=== PATIENT | female | born 1965 | race African-American/Black ===

== ENCOUNTER 2016-03-10 06:53 | Emergency (ER) | payer MEDICAID, MEDICARE ==
[~2016-03-10] VITALS: Ht 170.2 cm; Wt 79.4 kg
[~2016-03-10 06:53] MED LIST: ALBUTEROL SULF8.5 GM INH; AZITHROMYCIN250 MG ORAL; CHERATUSSIN AC118 ML PO; IBUPROFEN600 MG ORAL; NKM; PRILOSEC20 MG ORAL; ZOFRAN ODT4 MG ORAL
[2016-03-10 07:27] VITALS: BP 135/88
[2016-03-10] MEDS ORDERED: METROGEL-VAGINA70 G1 VAGIN (07:31)
[2016-03-10 07:37] VITALS: BP 135/88
--- NOTE | 2016-03-10 07:44 | Emergency Room Report ---
History of Present Illness General Chief Complaint: Female Urogenital Problems Source: Patient Present Illness HPI Patient is a 51-year-old female who presented after increased vaginal malodor. The patient had gradual so symptoms which are worsened by intercourse. The patient denies any vaginal discharge. She reported having no fever. She denied abdominal pain. She reports having a primary care physician. She denied any abdominal pain. She states that she's not . Allergies: Coded Allergies: MORPHINE (Verified Allergy, Unknown, 02/27/15) PENICILLINS (Verified Allergy, Unknown, 02/27/15) SHELLFISH DERIVED (Verified Allergy, Unknown, 02/27/15) Uncoded Allergies: CONTRAST (Allergy, Unknown, 03/10/16) Patient History Past Medical History: see triage record Last Menstrual Period: 2 weeks ago Now: No Reviewed Nursing Documentation: PMH: Agreed, PSxH: Agreed Nursing Documentation-PMH Past Medical History: No Stated History Review of Systems All Other Systems: negative except mentioned in HPI Physical Exam Vital Signs Date Time Temp Pulse Resp B/P Pulse Ox O2 Delivery O2 Flow Rate FiO2 03/10/16 07:06 98.2 90 16 135/88 98 Room Air Sp02 EP Interpretation: reviewed, normal General Appearance: normal inspection, well appearing, no apparent distress, alert, GCS 15 Head: atraumatic ENT: normal ENT inspection, hearing grossly normal, normal voice Neck: normal inspection, full range of motion, supple, no bony tend Respiratory: normal inspection, lungs clear, normal breath sounds, no respiratory distress, no retraction, no wheezing Cardiovascular #1: regular rate, rhythm, no edema Gastrointestinal: normal inspection, normal bowel sounds, non tender, soft, no guarding, no hernia Genitourinary: no CVA tenderness Musculoskeletal: normal inspection, back normal, normal range of motion Neurologic: normal inspection, alert, oriented x3, responsive, supervisor buffing and pasting III-XII nml as tested, speech normal Psychiatric: normal inspection, judgement/insight normal, mood/affect normal Skin: normal inspection, normal color, no rash Medical Decision Making Diagnostic Impression: Primary Impression: Bacterial vaginosis ER Course Patient presented for vaginal odor. The differential diagnosis included wasn't limited to bacterial vaginosis, Trichomonas, foreign body among others. Patient 's benign exam and does not appear to require any further imaging or laboratory testing at this time. The patient presented increased been diagnosed with bacterial vaginosis and states that this is a similar episode. Patient given prescription for MetroGel. The patient was advised that she would need further testing with her [employer] . Pelvic was deferred per patient. The patient is advised to follow up with primary care doctor in 1-2 days. Patient is advised to return if any worsening condition or if any changes in status that are concerning. Last Vital Signs Date Time Temp Pulse Resp B/P Pulse Ox O2 Delivery O2 Flow Rate FiO2 03/10/16 07:37 98.2 85 16 135/88 98 Room Air Status: improved Disposition: HOME, SELF-CARE Condition: Stable Scripts Metronidazole* (METROGEL-VAGINAL*) 70 Gm Gel.w.appl 1 APPL VAGIN EVERY 12 HOURS, #70 GM Prov: Jose Thornton 03/10/16 Referrals: [facility],REFERRING (PCP) Patient Instructions: Bacterial Vaginosis Jose Thornton Mar 10, 2016 07:44
== END 2016-03-10 07:43 | disposition home or self-care (01) ==
LOC: EMR 07:31
DX: N76.0 Acute vaginitis (principal); Z88.6 Allergy status to analgesic agent; Z91.041 Radiographic dye allergy status; Z91.013 Allergy to seafood
CPT/HCPCS: 99283

== ENCOUNTER 2016-03-30 21:24 | Emergency (ER) | payer MEDICAID ==
[~2016-03-30] VITALS: Ht 170.2 cm; Wt 78.9 kg
[~2016-03-30 21:24] MED LIST changes: +METROGEL-VAGINA70 G1 VAGIN
[2016-03-30 21:40] VITALS: BP 128/78
[2016-03-30 21:55] LABS: APPEARANCE,URINE CLEAR; KETONES,URINE NEGATIVE (NEGATIVE); LEUKOCYTE ESTERASE ,URINE NEGATIVE (NEGATIVE); NITRITE,URINE NEGATIVE (NEGATIVE); PH,URINE 6 (4.5-8.0); PROTEIN,URINE NEGATIVE (NEGATIVE); UROBILINOGEN,URINE NORMAL MG/DL (0.0-1.0)
[2016-03-30 22:16] LABS: BACTERIA,URINE OCCASIONAL /HPF; RBC,URINE 0-2 /HPF (0 - 2); SQUAMOUS EPITHELIAL CELL,UR FEW /LPF (NONE/OCC); WBC,URINE 0-2 /HPF (0 - 2)
[2016-03-30 22:30] VITALS: BP 120/67
[2016-03-30] MEDS ORDERED: NITROFURANTOIN100 M2 ORAL (22:49)
[2016-03-30] MEDS ORDERED: FLUCONAZOLE150 MG ORAL (22:49)
[2016-03-30] MEDS ORDERED: PHENAZOPYRIDIN100 MG ORAL (22:49)
[2016-03-30 23:00] VITALS: BP 128/78
--- NOTE | 2016-03-31 00:04 | Emergency Room Report ---
History of Present Illness General Chief Complaint: Female Urogenital Problems Source: Patient Present Illness HPI 51-year-old female presents to ED for evaluation. Patient states she was here earlier this month for malodorous vaginal discharge. Patient diagnosed with bacterial vaginosis and prescribed MetroGel. Patient states the symptoms were resolving and she stated that she got a curdish white discharge shortly after. States that she has been using dviv-mbp-rxyrivt medications without relief. States that she is noting dysuria the last few days. Superpubic pain. 5/10, sharp, nonradiating. Worse with urination. No aggravating relieving factors. Denies any other associated symptoms. Allergies: Coded Allergies: MORPHINE (Verified Allergy, Unknown, 02/27/15) PENICILLINS (Verified Allergy, Unknown, 02/27/15) SHELLFISH DERIVED (Verified Allergy, Unknown, 02/27/15) Uncoded Allergies: CONTRAST (Allergy, Unknown, 03/10/16) Patient History Past Medical History: none Past Surgical History: none Pertinent Family History: none Social History: Denies: alcohol use, drug use, smoking Last Menstrual Period: 2 weeks ago Now: No Immunizations: UTD Reviewed Nursing Documentation: PMH: Agreed, PSxH: Agreed Review of Systems All Other Systems: negative except mentioned in HPI Physical Exam Vital Signs Date Time Temp Pulse Resp B/P Pulse Ox O2 Delivery O2 Flow Rate FiO2 03/30/16 21:29 98.4 67 18 135/87 99 Room Air Sp02 EP Interpretation: reviewed, normal General Appearance: no apparent distress, alert, GCS 15, non-toxic Head: normocephalic, atraumatic Eyes: bilateral eye PERRL, bilateral eye normal inspection ENT: hearing grossly normal, normal pharynx, no angioedema, normal voice Neck: full range of motion, supple/symm/no masses Respiratory: chest non-tender, lungs clear, normal breath sounds, speaking full sentences Cardiovascular #1: regular rate, rhythm, no edema Cardiovascular #2: 2+ carotid (R), 2+ carotid (L), 2+ radial (R), 2+ radial (L) , 2+ dorsalis pedis (R), 2+ dorsalis pedis (L) Gastrointestinal: normal bowel sounds, non tender, soft, non-distended, no guarding, no rebound Rectal: deferred Genitourinary: normal inspection, no CVA tenderness Musculoskeletal: back normal, gait/station normal, normal range of motion, non- tender Neurologic: alert, oriented x3, responsive, motor strength/tone normal, sensory intact, speech normal Psychiatric: judgement/insight normal, memory normal, mood/affect normal, no suicidal/homicidal ideation Reflexes: 3+ bicep (R), 3+ bicep (L), 3+ tricep (R), 3+ tricep (L), 3+ knee (R) , 3+ knee (L) Skin: normal color, no rash, warm/dry, well hydrated Lymphatic: no adenopathy Medical Decision Making Diagnostic Impression: Primary Impression: Urinary tract infection Qualified Codes: N39.0 - Urinary tract infection, site not specified Additional Impression: Vaginal candidiasis ER Course Hospital Course 51-year-old female presents to ED complaining of dysuria with white curdish discharge Differential diagnoses include: UTI, cystitis, candidiasis, BV Clinical course Patient placed on stretcher. After initial history and physical I ordered UA, urine . UA + with some bacteria. Clinical he consistent with UTI. We will treat with antibiotics. will also prescribe Diflucan Diagnosis - UTI, vaginal candidiasis Stable and discharged home with prescriptions for Rx macrobid, pyridium, diflucan. Instructed to followup with PMD. Return to ED if symptoms recur or worsen Labs Test 03/30/16 21:40 Urine Color Pale yellow Urine Appearance Clear Urine pH 6 (4.5-8.0) Urine Specific [place] 1.010 (1.005-1.035) Urine Protein Negative (NEGATIVE) Urine Glucose (UA) Negative (NEGATIVE) Urine Ketones Negative (NEGATIVE) Urine Occult Blood 1+ (NEGATIVE) Urine Nitrite Negative (NEGATIVE) Urine Bilirubin Negative (NEGATIVE) Urine Urobilinogen Normal MG/DL (0.0-1.0) Urine Leukocyte Esterase Negative (NEGATIVE) Urine RBC 0-2 /HPF (0 - 2) Urine WBC 0-2 /HPF (0 - 2) Urine Squamous Epithelial Cells Few /LPF (NONE/OCC) Urine Bacteria Occasional /HPF (NONE) Urine HCG, Qualitative Negative Last Vital Signs Date Time Temp Pulse Resp B/P Pulse Ox O2 Delivery O2 Flow Rate FiO2 03/30/16 23:00 98.4 70 16 128/78 99 Room Air Status: improved Disposition: HOME, SELF-CARE Condition: Stable Scripts Fluconazole (FLUCONAZOLE) 150 Mg Tablet 150 MG ORAL ONCE A WEEK, #2 TAB Prov: WALTER BADILLO M.D. 03/30/16 Phenazopyridine Hcl* (PYRIDIUM*) 100 Mg Tablet 100 MG ORAL THREE TIMES A DAY, #9 TAB Prov: WALTER BADILLO M.D. 03/30/16 Nitrofurantoin Monohyd/M-Cryst* (MACROBID 100 MG*) 100 Mg Capsule 100 MG ORAL EVERY 12 HOURS for 7 Days, CAP Prov: WALTER BADILLO M.D. 03/30/16 Patient Instructions: Urinary Tract Infection, Vaginal Yeast Infection, Adult WALTER BADILLO M.D. Mar 31, 2016 00:04
== END 2016-03-30 23:00 | disposition home or self-care (01) ==
LOC: EMR 21:49
DX: N39.0 Urinary tract infection, site not specified (principal); B37.3 Candidiasis of vulva and vagina; Z88.6 Allergy status to analgesic agent; Z88.0 Allergy status to penicillin; Z91.013 Allergy to seafood; Z91.041 Radiographic dye allergy status
CPT/HCPCS: 81003; 81025; 99284

== ENCOUNTER 2016-09-30 20:47 | Emergency (ER) | payer MEDICAID ==
[~2016-09-30] VITALS: Ht 170.2 cm; Wt 74.8 kg
[~2016-09-30 20:47] MED LIST changes: +FLUCONAZOLE150 MG ORAL; +NITROFURANTOIN100 M2 ORAL; +PHENAZOPYRIDIN100 MG ORAL
[2016-09-30 21:00] VITALS: BP 128/70
--- NOTE | 2016-09-30 21:07 | Emergency Room Report ---
History of Present Illness General Chief Complaint: Chest Pain Source: Patient Present Illness HPI This is a 51-year-old female with no past medical history. She presents chief complaint of chest pressure has been ongoing for last few hours. Also complaining of pain to needle sensation in her body. [place] numb. She is under a lot of stress in her home with family issue. Denies suicidal thought homicidal thought. No nausea no vomiting. [place] short of breath. No swelling of her legs but no family history of DVT or PE. Not On control pill. Allergies: Coded Allergies: No Known Allergies (Unverified , 09/30/16) Patient History Past Medical History: see triage record, old chart reviewed Past Surgical History: none Pertinent Family History: none Social History: Denies: smoking Last Menstrual Period: september 21, 2016 Now: No : 10 Para: 6 Immunizations: other Reviewed Nursing Documentation: PMH: Agreed, PSxH: Agreed Nursing Documentation-PMH Past Medical History: No History, Except For Review of Systems Eye: Denies: blurred vision, eye pain ENT: Denies: ear pain, nose congestion, throat swelling Respiratory: Denies: cough, shortness of breath Cardiovascular: Reports: chest pain, Denies: palpitations Gastrointestinal: Denies: abdominal pain, diarrhea, nausea, vomiting Musculoskeletal: Denies: back pain, joint pain Skin: Denies: rash Neurological: Denies: headache, numbness Endocrine: Denies: increased thirst, increased urine Hematologic/Lymphatic: Denies: easy bruising All Other Systems: negative except mentioned in HPI Physical Exam Vital Signs Date Time Temp Pulse Resp B/P Pulse Ox O2 Delivery O2 Flow Rate FiO2 09/30/16 20:52 98.2 66 20 128/70 100 Room Air vitals normal Sp02 EP Interpretation: reviewed, normal General Appearance: well appearing, no apparent distress, alert Head: normocephalic, atraumatic Eyes: bilateral eye EOMI, bilateral eye PERRL ENT: hearing grossly normal, normal pharynx Neck: full range of motion, supple, no meningismus Respiratory: chest non-tender, lungs clear, normal breath sounds Cardiovascular #1: regular rate, rhythm, no murmur Gastrointestinal: normal bowel sounds, non tender, no mass, no organomegaly, no bruit, non-distended Musculoskeletal: back normal, gait/station normal, normal range of motion Psychiatric: mood/affect normal Skin: warm/dry Medical Decision Making Diagnostic Impression: Primary Impression: Chest pain Qualified Codes: R07.9 - Chest pain, unspecified Additional Impression: Stress reaction ER Course patient with atypical chest pain. Most likely anxiety/stress related. She's felt better after Ativan. We'll discharge home. No evidence of ACS, PE, dissection to name a few. EKG Diagnostic Results EKG Time: 21:06 Rate: normal Rhythm: NSR ST Segments: no acute changes ASA given to the pt in ED: Yes Rhythm Strip Diag. Results Rhythm Strip Time: 21:06 Rate: 70 Rhythm: NSR, no PVC's Chest X-Ray Diagnostic Results Chest X-Ray Diagnostic Results : Chest X-Ray Ordered: Yes # of Views/Limited/Complete: 1 View Indication: Chest Pain EP Interpretation: Yes Interpretation: no consolidation, no effusion, no pneumothorax, no acute cardiopulmonary disease Impression: No acute disease Interpreting ER Provider: Electronically signed by Rahat Nieto MD Last Vital Signs Date Time Temp Pulse Resp B/P Pulse Ox O2 Delivery O2 Flow Rate FiO2 09/30/16 20:52 98.2 66 20 128/70 100 Room Air Status: improved Disposition: HOME, SELF-CARE Condition: Stable Scripts Lorazepam* (ATIVAN*) 1 Mg Tablet 1 MG ORAL THREE TIMES A DAY, #21 TAB Prov: RAHAT NIETO M.D. 09/30/16 Patient Instructions: Nonspecific Chest Pain Additional Instructions: Followup with your DrYahir in 2-3 days. Return if symptom worsen. RAHAT NIETO M.D. Sep 30, 2016 21:07
[2016-09-30 21:13] LABS: APPEARANCE,URINE CLEAR; KETONES,URINE NEGATIVE (NEGATIVE); LEUKOCYTE ESTERASE ,URINE NEGATIVE (NEGATIVE); NITRITE,URINE NEGATIVE (NEGATIVE); PH,URINE 7 (4.5-8.0); PROTEIN,URINE NEGATIVE (NEGATIVE); UROBILINOGEN,URINE NORMAL MG/DL (0.0-1.0)
[2016-09-30] MEDS ORDERED: LORazepam Inj 2mg/ml 1ml IV ONE (21:15)
[2016-09-30] MEDS ORDERED: Aspirin Baby 81mg ORAL ONE (21:15)
[2016-09-30 21:32] LABS: BASOPHILS % (AUTO) 1.4 % (0.0-2.0); EOSINOPHILS % (AUTO) 2.4 % (0.0-3.0); LYMPHOCYTES % (AUTO) 45.7 % (20.0-45.0); MEAN CORPUSCULAR HEMOGLOBIN 28.7 PG (27.0-31.0); MEAN CORPUSCULAR HGB CONC 33.1 G/DL (32.0-36.0); MEAN CORPUSCULAR VOLUME 87 FL (80-99); MEAN PLATELET VOLUME 6.9 FL (6.5-10.1); MONOCYTES % (AUTO) 9.9 % (1.0-10.0); NEUTROPHILS % (AUTO) 40.5 % (45.0-75.0); PLATELET COUNT 272 K/UL (150-450); RED BLOOD COUNT 4.35 M/UL (4.20-5.40); RED CELL DISTRIBUTION WIDTH 11.4 % (11.6-14.8); WHITE BLOOD COUNT 4.6 K/UL (4.8-10.8)
[2016-09-30 21:47] LABS: TROPONIN I < 0.30 ng/mL (<=0.30)
[2016-09-30 21:48] LABS: ALANINE AMINOTRANSFERASE 9 U/L (3-33); ALBUMIN/GLOBULIN RATIO 1.6 (1.0-2.7); ANION GAP 13 (5-15); ASPARTATE AMINO TRANSFERASE 16 U/L (5-40); CARBON DIOXIDE 25 mEQ/L (20-30); CHLORIDE 100 mEQ/L (98-107); CREATININE 1.1 mg/dL (0.5-0.9); GLOMERULAR FILTRATION RATE > 60 mL/min (>60); HEMOLYSIS 5; POTASSIUM 3.7 mEQ/L (3.4-4.9); SODIUM 138 mEQ/L (135-145); TOTAL PROTEIN 7.5 g/dL (6.6-8.7)
[2016-09-30 21:58] LABS: CKMB 3.4 ng/mL (< 3.8)
[2016-09-30] MEDS ORDERED: Ketorolac 30mg Inj IV ONE (22:00)
[2016-09-30] MEDS ORDERED: ATIVAN1 MG ORAL (22:10)
[2016-09-30 22:18] VITALS: BP 119/74
--- NOTE | 2016-10-01 10:42 | Diagnostic Imaging Report ---
Indication: Chest pain Technique: One view of the chest Comparison: none Findings: Lungs and pleural spaces are clear. Heart size is normal Impression: No acute process
--- NOTE | 2016-10-02 13:19 | Cardiology Report ---
APPROVED REPORT EKG Measurement Heart [id number] Sinus bradycardia with 1st degree AV block Possible Anterior infarct, age undetermined Abnormal ECG
== END 2016-09-30 22:18 | disposition home or self-care (01) ==
LOC: EMR 21:30
DX: R07.9 Chest pain, unspecified (principal); F43.9 Reaction to severe stress, unspecified; Z86.718 Personal history of other venous thrombosis and embolism; Z86.711 Personal history of pulmonary embolism
CPT/HCPCS: 36415; 71010; 80053; 80300; 81003; 81025; 82550; 82553; 84484; 85025; 85379; 93005; 96374; 96375; 99284; J1885

== ENCOUNTER 2016-10-27 04:54 | Emergency (ER) | payer MEDICAID ==
[~2016-10-27] VITALS: Ht 170.2 cm; Wt 74.8 kg
[~2016-10-27 04:54] MED LIST changes: +ATIVAN1 MG ORAL
[2016-10-27] MEDS ORDERED: NKM (05:15)
[2016-10-27 05:20] VITALS: BP 126/76
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
[2016-10-27] MEDS ORDERED: Norco 5mg/325mg tab ORAL ONE (05:45)
[2016-10-27] MEDS ORDERED: HYDROCODON-ACE1 EA15 ORAL (06:22)
[2016-10-27 06:30] VITALS: BP 126/76
--- NOTE | 2016-10-27 08:28 | Diagnostic Imaging Report ---
Indication: pain Findings: 3 views of the right hand were obtained. There is a fracture of the head of the fifth metacarpal extending into the MCP joint. Soft tissue swelling is present. Impression: Acute fifth metacarpal fracture
== END 2016-10-27 06:30 | disposition home or self-care (01) ==
LOC: EMR 05:28
DX: S62.396A Other fracture of fifth metacarpal bone, right hand, initial encounter for closed fracture (principal); S00.33XA Contusion of nose, initial encounter; Y04.2XXA Assault by strike against or bumped into by another person, initial encounter; Y92.9 Unspecified place or not applicable
CPT/HCPCS: 29125; 99283

== ENCOUNTER 2016-10-29 11:44 | Emergency (ER) | payer MEDICAID ==
[~2016-10-29] VITALS: Ht 170.2 cm; Wt 75.3 kg
[~2016-10-29 11:44] MED LIST changes: +HYDROCODON-ACE1 EA15 ORAL
[2016-10-29 12:43] VITALS: BP 116/75
[2016-10-29] MEDS ORDERED: FLUCONAZOLE100 MG ORAL (12:43)
[2016-10-29] MEDS ORDERED: METROGEL-VAGINA70 G1 VAGIN (12:44)
[2016-10-29 12:46] VITALS: BP 116/75
--- NOTE | 2016-10-29 13:05 | Emergency Room Report ---
History of Present Illness General Chief Complaint: Upper Extremity Injury Source: Patient Present Illness HPI Patient present with complaints of pain to the right hand On review of records Patient was here about 1-1/2 days ago with similar complaint and was found to have a fifth metacarpal fracture On further discussion patient now reports that she was seen at [facility] She was told there that she did not have a fracture However the swelling continues in her discomfort continues and therefore the patient presents back to the ER Denies any recent trauma since the initial injury Patient also clinically states that she feels she has a yeast infection and would like treatment for that Allergies: Coded Allergies: No Known Allergies (Unverified , 09/30/16) Patient History Past Medical History: see triage record Pertinent Family History: none Last Menstrual Period: 10/20/16 Now: No Reviewed Nursing Documentation: PMH: Agreed, PSxH: Agreed Nursing Documentation-PMH Past Medical History: No Stated History Review of Systems All Other Systems: negative except mentioned in HPI Physical Exam Vital Signs Date Time Temp Pulse Resp B/P (MAP) Pulse Ox O2 Delivery O2 Flow Rate FiO2 10/29/16 12:00 98.1 75 16 116/75 Room Air 10/29/16 12:43 98 Sp02 EP Interpretation: reviewed, normal General Appearance: well appearing, no apparent distress Head: normocephalic, atraumatic Eyes: bilateral eye PERRL, bilateral eye EOMI ENT: normal pharynx Neck: full range of motion, supple Respiratory: lungs clear Musculoskeletal: swelling - Involving the dorsal right hand, neurovascularly intact Neurologic: alert, oriented x3, responsive, sensory intact Skin: other - Swelling involving the right hand diffusely, pain with palpation of the metacarpals Lymphatic: no adenopathy Procedures Splinting Splinting : Consent: Verbal Location: right hand Pre-Made Type: pre fabricated Hand-Made Type: Splint: volar Pre-Proc Neuro Vasc Exam: normal Post-Proc Neuro Vasc Exam: normal Patient Tolerated: Well Complications: None Medical Decision Making Diagnostic Impression: Primary Impression: hand fracture ER Course Patient did not present with her splint and states it was removed at the other facility Her after providing her the copy of the radiology report showing obvious fracture patient was splinted as noted above Patient's CURES reviewed and the patient appears to be under pain management and have close outpatient followup Last Vital Signs Date Time Temp Pulse Resp B/P (MAP) Pulse Ox O2 Delivery O2 Flow Rate FiO2 10/29/16 12:46 98.1 72 16 116/75 98 Room Air Status: improved Disposition: HOME, SELF-CARE Condition: Improved Scripts Metronidazole* (METROGEL-VAGINAL*) 70 Gm Gel.w.appl 1 APPL VAGIN EVERY 12 HOURS for 7 Days, #70 GM Prov: SACHIN JOHNSON D.O. 10/29/16 Fluconazole (FLUCONAZOLE) 100 Mg Tablet 100 MG ORAL DAILY for 5 Days, #5 TAB 0 Refills Prov: SACHIN JOHNSON D.O. 10/29/16 Referrals: [facility],REFERRING (PCP) Patient Instructions: Metacarpal Fracture, [id number] Additional Instructions: Patient is provided with the discharge instructions notified to follow up with primary doctor in the next 2-3 days otherwise return to the er with any worsening symptoms. Please note that this report is being documented using DRAGON technology. This can lead to erroneous entry secondary to incorrect interpretation by the dictating instrument. SACHIN JOHNSON D.O. Oct 29, 2016 13:05
== END 2016-10-29 12:48 | disposition home or self-care (01) ==
LOC: EMR 12:12
DX: S62.306D Unspecified fracture of fifth metacarpal bone, right hand, subsequent encounter for fracture with routine healing (principal)
CPT/HCPCS: 99283

== ENCOUNTER 2017-03-09 06:57 | Emergency (ER) | payer MEDICAID, OTHER ==
[~2017-03-09] VITALS: Ht 170.2 cm; Wt 79.4 kg
[~2017-03-09 06:57] MED LIST changes: +FLUCONAZOLE100 MG ORAL
[2017-03-09 07:06] VITALS: BP 114/63
[2017-03-09] MEDS ORDERED: NKM (07:10)
[2017-03-09] MEDS ORDERED: IBUPROFEN600 MG ORAL (07:17)
[2017-03-09] MEDS ORDERED: TAMIFLU75 MG ORAL (07:17)
--- NOTE | 2017-03-09 07:21 | Emergency Room Report ---
History of Present Illness General Chief Complaint: General Complaint Source: Patient Present Illness HPI 52-year-old female walks in with one day of body aches, fever and chills associated with sore throat. Did not get flu vaccine nature. She of asthma, but denies chest pain, shortness of breath, wheezing. No sick contacts at home or work no headache, neck pain or stiffness Allergies: Coded Allergies: No Known Allergies (Unverified , 09/30/16) Patient History Past Medical History: asthma Past Surgical History: none Pertinent Family History: none Social History: Denies: smoking, alcohol use, drug use Last Menstrual Period: 02/15/17 Now: No Immunizations: UTD Reviewed Nursing Documentation: PMH: Agreed, PSxH: Agreed Review of Systems All Other Systems: negative except mentioned in HPI Physical Exam Vital Signs Date Time Temp Pulse Resp B/P (MAP) Pulse Ox O2 Delivery O2 Flow Rate FiO2 03/09/17 07:06 100.9 104 21 114/63 95 Sp02 EP Interpretation: reviewed, normal General Appearance: normal inspection, well appearing, no apparent distress, alert, GCS 15, non-toxic Head: normocephalic, atraumatic Eyes: bilateral eye PERRL, bilateral eye EOMI ENT: normal ENT inspection, hearing grossly normal, normal pharynx, no angioedema, normal voice, TMs + canals normal, uvula midline, moist mucus membranes Neck: normal inspection, full range of motion, supple, thyroid normal, no meningismus, no bony tend Respiratory: normal inspection, lungs clear, normal breath sounds, no rhonchi, no respiratory distress, no retraction, no accessory muscle use, no wheezing, speaking full sentences Cardiovascular #1: regular rate, rhythm, no edema, no JVD, normal capillary refill Gastrointestinal: normal inspection, normal bowel sounds, non tender, soft, no mass, no peritonitis, non-distended, no guarding, no hernia, no pulsatile mass Genitourinary: no CVA tenderness Musculoskeletal: normal inspection, back normal, normal range of motion, no calf tenderness, pelvis stable, Koffi's Sign negative Neurologic: normal inspection, alert, oriented x3, responsive, port steward III-XII nml as tested, motor strength/tone normal, cerebellar normal, normal gait, speech normal Psychiatric: normal inspection, judgement/insight normal, mood/affect normal, no suicidal/homicidal ideation, no delusions Skin: normal inspection, normal color, no rash Lymphatic: normal inspection, no adenopathy Medical Decision Making Diagnostic Impression: Primary Impression: Influenza-like illness ER Course Vital signs significant for fever Normotensive, not septic appearing Not an asthma exacerbation Given one day of body aches, subjective fevers and chills and documented fever here we'll treat for flu Was given Motrin in ER and prescription for same Advise close primary care followup Understands to return for worsening symptoms ER course: Patient has remained stable during ED stay. Disposition: Patient is to be discharged to home. Prescriptions given are motrin, tamilfu Patient is instructed to follow up with their primary care doctor within 5 days. Strict return precautions discussed with patient such as fever, chills, worsening/severe pain, nausea, vomiting, which may indicate severe illness. Patient verbalizes understanding and agrees with plan. Please note that this Emergency Department Report was dictated using [employer] technology software, occasionally this can lead to erroneous entry secondary to interpretation by the dictation equipment Last Vital Signs Date Time Temp Pulse Resp B/P (MAP) Pulse Ox O2 Delivery O2 Flow Rate FiO2 03/09/17 07:06 100.9 104 21 114/63 95 Status: improved Disposition: HOME, SELF-CARE Condition: Improved Scripts Ibuprofen* (MOTRIN*) 600 Mg Tablet 600 MG ORAL THREE TIMES A DAY for body aches, fever for 7 Days, #30 TAB 0 Refills Prov: DEEP AVILA M.D. 03/09/17 Oseltamivir Phosphate (Tamiflu) 75 Mg Capsule 75 MG ORAL TWICE A DAY for 5 Days, #10 CAP Prov: DEEP AVILA M.D. 03/09/17 Patient Instructions: Influenza, Adult, [id number] DEEP AVILA M.D. Mar 09, 2017 07:21
[2017-03-09 07:25] VITALS: BP 114/63
== END 2017-03-09 07:25 | disposition home or self-care (01) ==
LOC: EMR 07:10
DX: J11.1 Influenza due to unidentified influenza virus with other respiratory manifestations (principal); J45.909 Unspecified asthma, uncomplicated
CPT/HCPCS: 99284

== ENCOUNTER 2018-02-07 13:21 | Emergency (ER) | payer MEDICAID, OTHER ==
[~2018-02-07] VITALS: Ht 170.2 cm; Wt 79.4 kg
[~2018-02-07 13:21] MED LIST changes: +TAMIFLU75 MG ORAL
[2018-02-07 13:45] VITALS: BP 124/76
--- NOTE | 2018-02-07 14:37 | Diagnostic Imaging Report ---
Indication: Cough Technique: One view of the chest Comparison: 09/30/2016 Findings: Lungs and pleural spaces are clear. Heart size is normal. No significant change Impression: No acute process
[2018-02-07] MEDS ORDERED: Ketorolac 30mg Inj IM ONE (14:45)
[2018-02-07] MEDS ORDERED: Albuterol ud Inhalation HHN ONE (14:45)
[2018-02-07] MEDS ORDERED: Ipratropium 0.02% Inh Soln 2.5ml UD HHN ONE (14:45)
[2018-02-07] MEDS ORDERED: PROAIR HFA8.5 GM INH (15:51)
[2018-02-07] MEDS ORDERED: IBUPROFEN600 MG ORAL (15:51)
[2018-02-07] MEDS ORDERED: PROMETHAZINE-D118 ML ORAL (15:51)
[2018-02-07 15:55] VITALS: BP 133/78
--- NOTE | 2018-02-07 21:32 | Emergency Room Report ---
History of Present Illness General Chief Complaint: Flu Like Symptoms Source: Patient, Medical Record Present Illness HPI Patient is a 53-year-old female presenting for multiple symptoms including headache, myalgia, fever, chills, and cough for the past 3 days. She denies any known sick contacts or recent travel. Pain is a continuous 10 out of 10 dull ache. She has tried tylenol which helps. She denies other symptoms including N, V, SOB, CP, rash, diarrhea, abd pain Allergies: Coded Allergies: No Known Allergies (Unverified , 09/30/16) Patient History Past Medical History: see triage record Pertinent Family History: none Last Menstrual Period: 01/25/18 Reviewed Nursing Documentation: PMH: Agreed; PSxH: Agreed Nursing Documentation-PMH Past Medical History: No History, Except For Hx Neurological Problems: No - pinched nerve; degenerative disk disease Review of Systems All Other Systems: negative except mentioned in HPI Physical Exam Vital Signs Date Time Temp Pulse Resp B/P (MAP) Pulse Ox O2 Delivery O2 Flow Rate FiO2 02/07/18 13:40 98.1 82 18 124/76 99 Room Air 02/07/18 15:13 21 Sp02 EP Interpretation: reviewed, normal General Appearance: no apparent distress, alert, GCS 15, non-toxic Head: normocephalic, atraumatic Eyes: bilateral eye normal inspection, bilateral eye PERRL Respiratory: chest non-tender, lungs clear, normal breath sounds, speaking full sentences Cardiovascular #1: regular rate, rhythm, no edema Musculoskeletal: back normal, gait/station normal, normal range of motion, non- tender Neurologic: alert, oriented x3, responsive, motor strength/tone normal, sensory intact, speech normal Psychiatric: judgement/insight normal, memory normal, mood/affect normal, no suicidal/homicidal ideation Skin: normal color, no rash, warm/dry, well hydrated Medical Decision Making PA Attestation Dr. Wong is my supervising physician. Patient management was discussed with my supervising physician Diagnostic Impression: Primary Impression: Influenza-like symptoms ER Course Patient is a 53-year-old female presenting for multiple symptoms including headache, myalgia, fever, chills, and cough for the past 3 days. Differential diagnosis include but not limited to influenza, pharyngitis, sinusitis, AOM, bronchitis, PNA PE: afebrile. NAD HEENT: pharyngeal erythema. No tonsillar edema or exudate. uvula midline. TM intact bilat. No erythema. No lymphad Lungs CTA bilat. no wheezing CXR unremarkable. Pt states she cannot take deep breath without coughing. Breathing Tx ordered. Pt feels better after She is given toradol IM for pain which helps. Influenza negative She is DC'ed home with ER precautions Microbiology Date/Time Source Procedure Growth Status 02/07/18 15:40 Nasal Nares Influenza Types A,B Antigen (JASON) - Final Complete Lab Results Impression Neg Chest X-Ray Diagnostic Results Chest X-Ray Diagnostic Results : Chest X-Ray Ordered: Yes # of Views/Limited/Complete: 1 View Indication: Other - cough EP Interpretation: Yes CARIDAD Xray: Interpretation reviewed, by supervising MD, and agrees with findings. Interpretation: no consolidation, no effusion, no pneumothorax, no acute cardiopulmonary disease Impression: No acute disease Electronically Signed by: Chris Mcdonald PA-C Last Vital Signs Date Time Temp Pulse Resp B/P (MAP) Pulse Ox O2 Delivery O2 Flow Rate FiO2 02/07/18 15:55 98.5 70 18 133/78 99 Room Air 21 Status: improved Disposition: HOME, SELF-CARE Condition: Improved Scripts Albuterol Sulfate* (PROAIR HFA*) 8.5 Gm Hfa.aer.ad 2 PUFFS INH Q6H, #8.5 GM 0 Refills Prov: TERZIAN,CHRIS P.A. 02/07/18 D-Methorphan Hb/Prometh Hcl* (PROMETHAZINE-DM SYRUP*) 118 Ml Syrup 5 ML ORAL Q6H PRN for For Cough, #118 ML 0 Refills Prov: TERZIAN,CHRIS P.A. 02/07/18 Ibuprofen* (MOTRIN*) 600 Mg Tablet 600 MG ORAL Q8H PRN for For Pain, #30 TAB 0 Refills Prov: TERZIAN,CHRIS P.A. 02/07/18 Referrals: NON PHYSICIAN (PCP) Patient Instructions: Cough, Adult, Viral Respiratory Infection Additional Instructions: I discussed my findings with the patient. All questions and concerns have been answered. Treatment and medication compliance have been addressed. I advised the patient that they need to follow up with PMD in 3-5 days. Return to ED if symptoms worsen, new symptoms arise, or if needed for any reason. Patient verbalized understanding of discharge instructions. CHRIS MCDONALD Feb 07, 2018 21:32
== END 2018-02-07 15:57 | disposition home or self-care (01) ==
LOC: EMR 14:15
DX: J11.1 Influenza due to unidentified influenza virus with other respiratory manifestations (principal)
CPT/HCPCS: 71045; 86710; 94640; 94664; 96372; 99284; J1885

== ENCOUNTER 2018-08-04 11:17 | Emergency (ER) | payer MEDICAID, OTHER ==
[~2018-08-04] VITALS: Ht 170.2 cm; Wt 74.4 kg
[~2018-08-04 11:17] MED LIST changes: +PROAIR HFA8.5 GM INH; +PROMETHAZINE-D118 ML ORAL
--- NOTE | 2018-08-04 11:32 | NUR ---
ED Nurse Note: Patient walked into ED c/o right shoulder pain that radiates to her right wrist, patient states that she suistained a fall on 07/02/18 but did not come to ED, came to ED because patient picked up an objeect and immediately felt pain, patient rates her pain a 10/10 pain. patient is alert and oriented x4, ambulatory with a steady gait, VSS
[2018-08-04] MEDS ORDERED: Methocarbamol 750mg tab ORAL ONE (12:00)
--- NOTE | 2018-08-04 12:06 | NUR ---
ED Nurse Note: pt madicated and down to imaging now.
--- NOTE | 2018-08-04 12:37 | NUR ---
ED Nurse Note: pt back from imaging.
[2018-08-04] MEDS ORDERED: IBUPROFEN600 MG ORAL (12:59)
[2018-08-04] MEDS ORDERED: ROBAXIN-750750 MG PO (12:59)
[2018-08-04] MEDS ORDERED: LIDODERM700 M1 TOPIC (12:59)
--- NOTE | 2018-08-04 13:00 | Diagnostic Imaging Report ---
Indication: Right shoulder pain Findings: 3 views of the right shoulder were obtained. No acute fractures, malalignment, erosions or periostitis are identified. Soft tissues are unremarkable. Impression: Negative for acute injury
--- NOTE | 2018-08-04 13:01 | Diagnostic Imaging Report ---
Indications: hip pain Findings: Two views of the right hip were obtained. No acute fracture is demonstrated. Alignment of the hip is within normal limits. Soft tissues are unremarkable. Impression: Negative for acute injury.
[2018-08-04 13:04] VITALS: BP 128/65
--- NOTE | 2018-08-04 13:06 | NUR ---
ED Nurse Note: pt given aci and script verbalized understanding ambulated out of er with strong and steady gait. Splint applied by er teck to rt arm.
[2018-08-04 13:12] VITALS: BP 128/65
--- NOTE | 2018-08-04 14:29 | Emergency Room Report ---
History of Present Illness General Chief Complaint: Pain Source: Patient Present Illness HPI 53-year-old female presents ED for evaluation. Patient walked in complaining of right shoulder and right hip pain. States that work she had a mechanical slip and fall about 1 month ago. Right shoulder right hip. States she is having persistent pain since the fall. States that she has not modified her activity or taking time off of work since the injury. States is her first time being evaluated. Pain is dull, 8 out of 10, nonradiating. Worse with raising her shoulder. Is able to walk. Denies any other injuries. No other aggravating relieving factors. Denies any other associated symptoms Allergies: Coded Allergies: No Known Allergies (Unverified , 08/04/18) Patient History Past Medical History: none Past Surgical History: none Pertinent Family History: none Social History: Denies: smoking, alcohol use, drug use Last Menstrual Period: CURRENTLY Now: No Immunizations: UTD Reviewed Nursing Documentation: PMH: Agreed; PSxH: Agreed Nursing Documentation-PMH Past Medical History: No Stated History Hx Neurological Problems: No - pinched nerve; degenerative disk disease Review of Systems All Other Systems: negative except mentioned in HPI Physical Exam Vital Signs Date Time Temp Pulse Resp B/P (MAP) Pulse Ox O2 Delivery O2 Flow Rate FiO2 08/04/18 11:24 98.1 95 16 123/61 (81) 99 Room Air Sp02 EP Interpretation: reviewed, normal General Appearance: no apparent distress, alert, GCS 15, non-toxic Head: normocephalic, atraumatic Eyes: bilateral eye normal inspection, bilateral eye PERRL ENT: hearing grossly normal, normal pharynx, no angioedema, normal voice Neck: full range of motion, supple/symm/no masses, tender lateral Respiratory: chest non-tender, lungs clear, normal breath sounds, speaking full sentences Cardiovascular #1: regular rate, rhythm, no edema Cardiovascular #2: 2+ carotid (R), 2+ carotid (L), 2+ radial (R), 2+ radial (L) , 2+ dorsalis pedis (R), 2+ dorsalis pedis (L) Gastrointestinal: normal bowel sounds, non tender, soft, non-distended, no guarding, no rebound Rectal: deferred Genitourinary: normal inspection, no CVA tenderness Musculoskeletal: gait/station normal, normal range of motion, tender - R shoulder, R hip Neurologic: alert, oriented x3, responsive, motor strength/tone normal, sensory intact, speech normal Psychiatric: judgement/insight normal, memory normal, mood/affect normal, no suicidal/homicidal ideation Reflexes: 3+ bicep (R), 3+ bicep (L), 3+ tricep (R), 3+ tricep (L), 3+ knee (R) , 3+ knee (L) Skin: normal color, no rash, warm/dry, well hydrated Lymphatic: no adenopathy Procedures Splinting Splinting : Consent: Verbal Pre-Made Type: shoulder sling Pre-Proc Neuro Vasc Exam: normal Post-Proc Neuro Vasc Exam: normal Patient Tolerated: Well Complications: None Medical Decision Making Diagnostic Impression: Primary Impression: Hip injury Qualified Codes: S79.911A - Unspecified injury of right hip, initial encounter Additional Impressions: Shoulder injury Qualified Codes: S49.91XA - Unspecified injury of right shoulder and upper arm , initial encounter Opioid dependence Qualified Codes: F11.29 - Opioid dependence with unspecified opioid-induced disorder ER Course Hospital Course 53-year-old F presents to ED complaining of R shoulder and hip pain s/p fall x 1 month Differential diagnoses include: Fracture, dislocation, sprain, contusion Clinical course Patient placed on stretcher. After initial history and physical, I ordered pain medications and Xrays of R shoulder/ hip Xrays read shows no acute fracture/dislocation. Shoulder sling. Findings with patient. Patient states she received no relief from the pain medications. I explained that she will likely need outpatient Ortho evaluation. i'll provide referrals I reviewed cures; patient is receiving extensive prescriptions for OxyContin on a monthly basis. Patient did not reveal this to me initially. When I asked the patient about that she states that she forgot and has been given this medication for her foot. Patient understands she will not receive any additional narcotic prescriptions at this time Diagnosis - hip injury, shoulder injury, opioid dependence Stable and discharged to home with prescription for Motrin, robaxin, lidoderm. apply ice, keep elevated. weight bear as tolerated. Followup with PMD/ortho. Return to ED if symptoms recur or worsen Other X-Ray Diagnostic Results Other X-Ray Diagnostic Results #1: X-Ray ordered: R shoulder # of Views/Limited Vs Complete: 3 View Indication: Pain EP Interpretation: Yes Interpretation: no dislocation, no soft tissue swelling, no fractures Impression: No acute disease Electronically Signed by: electronically signed by Flako Luna MD Other X-Ray Diagnostic Results #2: X-Ray ordered: R hip # of Views/Limited Vs Complete: 3 View Indication: Pain EP Interpretation: Yes Interpretation: no dislocation, no soft tissue swelling, no fractures Impression: No acute disease Electronically Signed by: electronically signed by Flako Luna MD Last Vital Signs Date Time Temp Pulse Resp B/P (MAP) Pulse Ox O2 Delivery O2 Flow Rate FiO2 08/04/18 13:12 98.1 83 16 128/65 99 Room Air Status: improved Disposition: HOME, SELF-CARE Condition: Stable Scripts Lidocaine (Lidoderm) 1 Each Adh..patch 1 PATCH TOPIC DAILY, #7 PATCH 0 Refills Patch(es) may remain in place for up to 12 hours in any 24-hour period. Prov: Flako Luna MD 08/04/18 Methocarbamol* (ROBAXIN-750*) 750 Mg Tablet 750 MG PO TID, #21 TAB 0 Refills Prov: Flako Luna MD 08/04/18 Ibuprofen* (MOTRIN*) 600 Mg Tablet 600 MG ORAL Q8H PRN for For Pain, #30 TAB 0 Refills Prov: Flako Luna MD 08/04/18 [facility]: [facility] 24 hour /7 days a week by Appointment Only [address] [address] Departure Forms: Return to Work Return to Work Date: Aug 07, 2018 Work Restrictions: No Heavy Lifting Patient Instructions: Shoulder Pain, [id number] Flako Luna MD Aug 04, 2018 14:29
== END 2018-08-04 13:12 | disposition home or self-care (01) ==
LOC: EMR 11:59
DX: S79.911A Unspecified injury of right hip, initial encounter (principal); S49.91XA Unspecified injury of right shoulder and upper arm, initial encounter; F11.29 Opioid dependence with unspecified opioid-induced disorder; W01.0XXA Fall on same level from slipping, tripping and stumbling without subsequent striking against object, initial encounter; Y92.9 Unspecified place or not applicable
CPT/HCPCS: 99284

== ENCOUNTER 2018-08-09 05:23 | Emergency (ER) | payer OTHER ==
[~2018-08-09] VITALS: Ht 170.2 cm; Wt 74.4 kg
[~2018-08-09 05:23] MED LIST changes: +LIDODERM700 M1 TOPIC; +ROBAXIN-750750 MG PO
[2018-08-09] MEDS ORDERED: Methocarbamol 750mg tab ORAL ONE (06:00)
[2018-08-09 06:15] VITALS: BP 127/59
--- NOTE | 2018-08-09 06:15 | NUR ---
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 PT SEEN BY AND LEAVING WITH ERASTO NOTED.
--- NOTE | 2018-08-09 07:23 | Emergency Room Report ---
History of Present Illness General Chief Complaint: Upper Extremity Injury Source: Patient Present Illness HPI 53-year-old female presents ED for evaluation. Complaining of her right shoulder pain for the last 6 days. States that about 1 month ago she had a mechanical trip and fall at work and is having persistent pain to the shoulder since. Was seen in the ED a few days ago. Had x-rays and placed in shoulder sling. States that she was given modified activity but her boss insisted that she work without restrictions which she states aggravated her pain. States she was unable to fill her prescriptions from the ED. Pain is throbbing, 9 out of 10, nonradiating. Unable to raise her shoulder. No other aggravating relieving factors. Denies any other associated symptoms Allergies: Coded Allergies: No Known Allergies (Unverified , 08/04/18) Patient History Past Medical History: none Past Surgical History: none Pertinent Family History: none Social History: Denies: smoking, alcohol use, drug use Last Menstrual Period: Aug 02 2018 Now: No Immunizations: UTD Reviewed Nursing Documentation: PMH: Agreed; PSxH: Agreed Nursing Documentation-PMH Hx Neurological Problems: No - pinched nerve; degenerative disk disease Review of Systems All Other Systems: negative except mentioned in HPI Physical Exam Vital Signs Date Time Temp Pulse Resp B/P (MAP) Pulse Ox O2 Delivery O2 Flow Rate FiO2 08/09/18 05:34 98.1 71 18 127/59 (81) 99 Room Air Sp02 EP Interpretation: reviewed, normal General Appearance: alert, GCS 15, non-toxic, mild distress Head: normocephalic Eyes: bilateral eye normal inspection, bilateral eye PERRL ENT: normal ENT inspection Neck: normal inspection Respiratory: normal inspection Cardiovascular #1: normal inspection Gastrointestinal: normal inspection Rectal: deferred Genitourinary: no CVA tenderness Musculoskeletal: decreased range of motion, tender - R shoulder Neurologic: alert, oriented x3, responsive, motor strength/tone normal, sensory intact, speech normal Psychiatric: normal inspection Skin: normal inspection Lymphatic: normal inspection Medical Decision Making Diagnostic Impression: Primary Impression: Shoulder injury Qualified Codes: S49.91XD - Unspecified injury of right shoulder and upper arm , subsequent encounter ER Course Hospital Course 53-year-old female presents to ED complaining of R shoulder pain Differential diagnoses include: Fracture, dislocation, sprain, contusion, bursitis Clinical course Patient placed on stretcher. After initial history, physical exam reveals an middle-aged female in no acute distress. There is tenderness at the humeral head namely at the insertion of the bicep tendon. Pain with abduction. No crepitus or bruising. No deformity. I saw this patient a few days ago and did x-rays of her right shoulder and right hip which were unremarkable. We placed in shoulder sling. I provided her prescriptions which she states she was unable to fill because she insisted that work insurance pay for this. She states she did see the employee health physician who told her she likely has tendinitis and would require modified activity. Patient states that full duty work at her job reaggravated her shoulder. I explained that we can provide her with a few days off and modified activity but she needs to continue with work restrictions until she could be evaluated by orthopedics. Given medications here but I explained that she needs to fill her prescriptions Diagnosis - shoulder injury stable and discharged to home. Followup with PMD/ortho. Return to ED if symptoms recur or worsen Last Vital Signs Date Time Temp Pulse Resp B/P (MAP) Pulse Ox O2 Delivery O2 Flow Rate FiO2 08/09/18 06:15 98.1 18 127/59 99 Room Air 08/09/18 05:34 71 Status: improved Disposition: HOME, SELF-CARE Condition: Stable Referrals: NOT CHOSEN IPA/,REFERRING (PCP) [facility] Open 24 hour /7 days a week by Appointment Only [address] [facility] [address] Departure Forms: Return to Work Return to Work Date: Aug 11, 2018 Work Restrictions: No Heavy Lifting Patient Instructions: Biceps Tendon Tendinitis (Proximal) and Tenosynovitis With [facility] Additional Instructions: please fill your medications previoulsy prescribed. Flako Luna MD Aug 09, 2018 07:23
== END 2018-08-09 06:30 | disposition home or self-care (01) ==
LOC: EMR 06:05
DX: S49.91XD Unspecified injury of right shoulder and upper arm, subsequent encounter (principal); W01.0XXD Fall on same level from slipping, tripping and stumbling without subsequent striking against object, subsequent encounter
CPT/HCPCS: 99282